=== PATIENT | female | born 1970 | race Caucasian/White ===

== ENCOUNTER 2017-02-05 09:43 | Emergency (ER) | payer BC ==
[~2017-02-05] VITALS: Ht 165.1 cm; Wt 60.0 kg
[~2017-02-05 09:43] MED LIST: LORTA5 PO; MEDR4PAK3 PO; ZITH250T PO
[2017-02-05 09:45] VITALS: BP 133/77; PULSE 80; RESP 14; TEMP 98.2; O2SAT 99
--- NOTE | 2017-02-05 10:23 | RADRPT ---
EXAM DATE/TIME: 02/05/2017 09:57 [place] COMPARISON: No previous studies available for comparison. INDICATIONS : Right distal foot, 2nd and 3rd toe pain and swelling, fell MEDICAL HISTORY : None. SURGICAL HISTORY : None. ENCOUNTER: Initial ACUITY: 3 days PAIN SCORE: 6/10 LOCATION: Right Foot FINDINGS: Three view examination of the right foot demonstrates a nondisplaced fracture through the distal seco nd metatarsal. The toes are intact. Soft tissue swelling is seen throughout the forefoot especially a long the dorsum of the metatarsal phalangeal joints. CONCLUSION: Nondisplaced fracture of the distal second metatarsal. Marcus Bazan MD on February 05, 2017 at 10:19 Board Certified Radiologist. This report was verified electronically.
--- NOTE | 2017-02-05 10:54 | PD ---
HPI Chief Complaint: Injury Time Seen by Provider: 10:37 Travel History International Travel<30 days: No Contact w/Intl Traveler<30days: No Traveled to known affect area: No History of Present Illness HPI 46yo F with no PMH presents to the ED with c/o right foot pain for 2 days. Said 2 days ago, she was on a ladder around 4 feet high and fell onto right foot. Denies any head trauma, chest pain, sob, n/v, abdominal pain, focal weakness or numbness. Pt was able to ambulate afterwards. Took ibuprofen 2 days ago. PFSH Past Medical History Medical History: Denies Significant Hx Diminished Hearing: No Influenza Vaccination: Yes ?: Not Menopausal: Yes Social History Alcohol Use: Yes (OCCASIONALLY) Tobacco Use: No Substance Use: No Allergies-Medications (Allergen,Severity, Reaction): Coded Allergies: No Known Allergies (Unverified Adverse Reaction, Unknown, 02/05/17) Reported Meds & Prescriptions Reported Meds & Active Scripts Active No Active Prescriptions or Reported Medications Review of Systems Except as stated in HPI: all other systems reviewed are Neg Physical Exam Narrative GENERAL: 46yo F in mild distress. SKIN: Focused skin assessment warm/dry. HEAD: Atraumatic. Normocephalic. CARDIOVASCULAR: Regular rate and rhythm. No murmur appreciated. RESPIRATORY: No accessory muscle use. Clear to auscultation. Breath sounds equal bilaterally. GASTROINTESTINAL: Abdomen soft, non-tender, nondistended. MUSCULOSKELETAL: Right foot: +edema dorsum of 2nd and 3rd metatarsal phalanges. Distal pulses intact. Sensation intact. No ttp calcaneous. Right ankle: No ttp bilateral malleolus. FROM right ankle. Right knee: FROM right knee. NEUROLOGICAL: Awake and alert. No obvious cranial nerve deficits. Motor grossly within normal limits. Normal speech. PSYCHIATRIC: Appropriate mood and affect; insight and judgment normal. Data Data Last Documented VS Vital Signs Date Time Temp Pulse Resp B/P (MAP) Pulse Ox O2 Delivery O2 Flow Rate FiO2 02/05/17 09:45 98.2 80 14 133/77 (95) 99 Orders Orders Foot, Complete ([id number]) (02/05/17 ) Splint Or Brace Apply/Monitor (02/05/17 11:01) Ketorolac Inj (Toradol Inj) (02/05/17 11:15) Crutches (02/05/17 ) [facility] Medical Decision Making Medical Screen Exam Complete: Yes Emergency Medical Condition: Yes Differential Diagnosis Fracture vs. contusion Narrative Course 46yo F with right foot pain s/p fall 2 days ago. Xray right foot showed nondisplaced fracture of distal second metatarsal. Pt has no open wounds. Posterior splint placed and crutches given. Pt is to follow up with podiatry. Tordaol given with improvement of pain. Return precautions given. Diagnosis Primary Impression: Metatarsal fracture Qualified Codes: S92.324A - Nondisplaced fracture of second metatarsal bone, right foot, initial encounter for closed fracture Referrals: Abdulaziz Valdez DPM call for appointment Second metatarsal fracture Patient Instructions: General Instructions Departure Forms: Tests/Procedures Additional Instructions: Please follow up with podiatry in 1-2 days. Return to the ED if symptoms worsen. Med/Other Pt SpecificInfo: Prescription(s) given Scripts Ibuprofen (Ibuprofen) 600 Mg Tab 600 MG PO Q8HR Y for PAIN, #20 TAB 0 Refills Prov: Marilee William DO 02/05/17 Disposition: 01 DISCHARGE HOME Condition: Stable Marilee William DO Feb 05, 2017 10:54
[2017-02-05] MEDS ORDERED: KETOROLAC TROMETHAMINE 60 MG/2 ML (IM) VIAL IM ONE (11:15)
[2017-02-05] MEDS ORDERED: IBUP-232 PO (12:03)
== END 2017-02-05 12:13 | disposition home or self-care (01) ==
LOC: NEPD 09:43
DX: S92.324A Nondisplaced fracture of second metatarsal bone, right foot, initial encounter for closed fracture (principal); W11.XXXA Fall on and from ladder, initial encounter
CPT/HCPCS: 73630; 96372; 99284; E0113; J1885